=== PATIENT | female | born 1955 | race Caucasian/White ===

== ENCOUNTER 2022-12-04 13:49 | Outpatient (CLI) | payer MEDICARE, OTHER, SELFPAY ==
--- NOTE | ~2022-12-04 | CT_ITS ---
EXAMINATION: CT chest abdomen pelvis wo con DATE: 12/04/2022 14:30 INDICATION: Non-Hodgkin lymphoma. Weight loss. TECHNIQUE: Computed tomography (CT) of the chest, abdomen, and pelvis was performed without intraveno us contrast. Automated exposure control and iterative reconstruction technique were employed. The dos e-length product was 235.07 mGy-cm. COMPARISON: CT chest and abdomen 12/24/2010 FINDINGS: CHEST CT: There is mild scarring at the lung apices. There is widespread peripheral septal thickening in the neil ngs. No honeycombing. There is a tracheal diverticulum at the thoracic inlet. No pleural effusion. Th e heart size is normal. There are coronary artery calcifications. No pericardial effusion. There are no pathologically enlarged lymph nodes. There is mild thoracic spondylosis. ABDOMEN/PELVIS CT: There is moderate intrahepatic biliary duct dilatation. The common duct is dilated to 13 mm. There ar e changes of cholecystectomy. The spleen, pancreas, adrenal glands, and kidneys are normal. There is no urolithiasis. There is diverticulosis of the colon without evidence of diverticulitis. The appendi x is normal. There is no free intraperitoneal fluid. There are no pathologically enlarged lymph nodes . There is calcified atherosclerosis of the aorta and many of the other arteries. There is mild lumba r spondylosis. IMPRESSION: 1. No evidence of lymphoma. 2. Mild chronic interstitial lung disease. 3. Moderate intrahepatic and extrahepatic bile duct dilatation with mild worsening from 12/24/2010. Cor relate with liver function tests to determine if this finding is clinically significant. Reviewed, dictated and finalized at location E. IMPRESSION: 1. No evidence of lymphoma. 2. Mild chronic interstitial lung disease. 3. Moderate intrahepatic and extrahepatic bile duct dilatation with mild worsen ing from 12/24/2010. Correlate with liver function tests to determine if this fin ding is clinically significant.
== END 2022-12-04 13:50 | disposition home or self-care (01) ==
PROVIDERS: PCP Family Medicine; Visit Provider Family Medicine
DX: C85.90 Non-Hodgkin lymphoma, unspecified, unspecified site (principal); J84.9 Interstitial pulmonary disease, unspecified
CPT/HCPCS: 71250; 74176

== ENCOUNTER → 2023-12-16 15:07 | Outpatient (CLI) | payer MEDICARE, OTHER, SELFPAY ==
--- NOTE | ~2023-12-16 | XR_ITS ---
XR ankle RT min 3V DATE: 12/16/2023 15:21 INDICATION: Right ankle pain TECHNIQUE: 4 views COMPARISON: None FINDINGS: There is osteopenia. No fracture, dislocation, periosteal reaction or bone destruction is d etected. Ankle mortise is preserved. IMPRESSION: Osteopenia Reviewed, dictated and finalized at location B. IMPRESSION: Osteopenia
== END ==
PROVIDERS: PCP Nurse Practitioner Family; Visit Provider Nurse Practitioner Family
DX: M85.89 Other specified disorders of bone density and structure, multiple sites (principal)
CPT/HCPCS: 73610

== ENCOUNTER 2023-12-30 14:11 | Outpatient (CLI) | payer MEDICARE, OTHER, SELFPAY ==
--- NOTE | ~2023-12-30 | US_ITS ---
EXAMINATION:US venous doppler LE RT INDICATION:Right leg swelling TECHNIQUE: Multiple grayscale, color flow and Doppler images of the right lower extremity deep venous systems were obtained and reviewed. COMPARISON:No prior studies for comparison. FINDINGS: The common femoral, superficial femoral and popliteal veins demonstrate normal respiratory variation, augmentation and compressibility. Color flow is also seen within the posterior tibial, pe roneal, greater saphenous and profunda veins. IMPRESSION: 1: No lower extremity deep venous thrombosis. Reviewed, dictated and finalized at location B.
== END 2023-12-30 14:12 | disposition home or self-care (01) ==
PROVIDERS: PCP Family Medicine; Visit Provider Nurse Practitioner Family
DX: R60.0 Localized edema (principal)
CPT/HCPCS: 93971

== ENCOUNTER 2024-02-29 14:14 | Emergency (ER) | payer MEDICARE, OTHER, SELFPAY ==
--- NOTE | 2024-02-29 14:23 | ED.GENADULT ---
HPI - General Adult General Chief complaint: Skin/Abscess/Foreign Body Stated complaint: bee stings,allergic Time Seen by Provider: 02/29/24 14:34 Source: patient, RN notes reviewed and old records reviewed Mode of arrival: ambulatory Limitations: no limitations History of Present Illness HPI narrative: 68-year-old female presents to the [facility] concerned that she was stung by a bee due to an allergic reaction she had many years ago. States that she had hives at the time. Patient reports she was stung to her ankles about 1 hour ago, took a couple of Benadryl and came here. Mild swelling/localized reaction noted to both ankles, right lateral and left medial. mild reaction to the right ring finger. Localized reaction without systemic issue. No difficulty breathing, no lip or tongue swelling. Patient is talking in full sentences Onset (ago): hour(s) (1) Treatments prior to arrival: other (Benadryl) Related Data Home Medications Medication Instructions Recorded Confirmed aspirin 81 mg tablet,delayed 81 mg PO DAILY 06/28/19 02/29/24 release (Adult Low Dose Aspirin) cyanocobalamin (vitamin B-12) 500 500 mcg PO DAILY 06/28/19 02/29/24 mcg tablet (Vitamin B-12) multivitamin,nm-[id number] 1 tablet PO DAILY 06/28/19 02/29/24 (Complete Multivitamin tablet) melatonin 10 mg capsule 10 mg PO QHS 07/30/21 02/29/24 cholecalciferol (vitamin D3) 50 2,000 unit PO DAILY 07/15/22 02/29/24 mcg (2,000 unit) capsule Allergies Allergy/AdvReac Type Severity Reaction Status Date / Time BEE STINGS Allergy Severe HIVES Uncoded 02/29/24 14:17 SWELLING Blood Products Allergy Mild TRANSFUSION Uncoded 02/29/24 14:17 REACTION-HIVES Review of Systems Review of Systems: All systems reviewed & are unremarkable except as noted in HPI and below Constitutional: Constitutional: Reports no additional constitutional complaints Eyes: Eyes: Reports no additional eye complaints ENT: Reports system reviewed and no additional complaints, except as documented Cardiovascular: Cardiovascular: Reports no additional cardiovascular complaints, Denies chest pain and Denies dyspnea Respiratory: Respiratory: Reports no additional respiratory complaints, Denies chest congestion, Denies cough and Denies dyspnea Gastrointestinal: Gastrointestinal: Reports no additional gastrointestinal complaints, Denies abdominal pain, Denies nausea and Denies vomiting Musculoskeletal: Musculoskeletal: Reports no additional musculoskeletal complaints Integumentary/Breasts: Skin/Breast: Reports as per HPI Neurologic: Reports system reviewed and no additional complaints, except as documented Psychiatric: Psychiatric: Reports no additional psychiatric complaints Allergic/Immunologic: Allergic/Immunologic: Reports no additional allergic/immunologic complaints PMFSH Past Medical History Medical History Acute non-recurrent maxillary sinusitis At moderate risk for fall Benign head tremor BMI 20.0-20.9, adult Body mass index (BMI) of 19 or less in adult Candidiasis of genitalia in female Conjunctivitis (10/28/21) acute conjunctivitis left eye possibly bacterial Conjunctivitis, allergic, chronic COVID-19 (~04/30/23) Edema of right lower extremity Insomnia Interstitial lung disease (~12/04/22) mild chronic interstitial lung disease on CT 12/04/2022. patient vapes nicotine products for years. Overactive bladder Plant allergic contact dermatitis (~01/26/22) Right ankle pain (12/09/22) Family History Family History Father Patient's father is , Onset Age: 89 Family history of cardiovascular disease Family history of dementia Grandparent Family history of cardiovascular disease, Onset Age: 80 Cerebrovascular accident Sibling Family history of cardiovascular disease Family history of lymphoma Social History Social History (Reviewed 02/29/24 @ 14:42 by Savanah Lopez, APR
[2024-02-29 14:41] VITALS: BP 118/57; PULSE 56; RESP 16; TEMP 36.2; O2SAT 99
[2024-02-29] MEDS: FAMOTIDINE 20 MG TABLET PO (14:49)
[2024-02-29] MEDS: predniSONE 20 MG TABLET 40 MG PO (14:49)
== END 2024-02-29 15:11 | disposition home or self-care (01) ==
PROVIDERS: Emergency Provider Nurse Practitioner; PCP Family Medicine
DX: T63.441A Toxic effect of venom of bees, accidental (unintentional), initial encounter (principal); J84.9 Interstitial pulmonary disease, unspecified; Z86.16 Personal history of COVID-19
CPT/HCPCS: 99213; A9270; G0463; J7512

== ENCOUNTER → 2024-10-05 14:30 | Outpatient (CLI) | payer MEDICARE, OTHER, SELFPAY ==
--- NOTE | ~2024-10-05 | XR_ITS ---
XR shoulder RT min 2V Ordering provider: Dave Ellis MD History: . M25.511 - Pain in right shoulder . Comparison: None. FINDINGS: BONES: No acute fracture or dislocation. JOINT SPACES: The acromioclavicular joint is normal. The glenohumeral joint is normal. SOFT TISSUES: Normal. IMPRESSION: No acute osseous abnormality right shoulder. Reviewed, dictated and finalized at location A.
--- OUTSIDE RECORDS SUMMARY | 2024-10-05 16:23 | XMS_ITS | Continuity of Care Document ---
Author Organization [facility] Address [address] [place] [address] Phone Care Team Providers Care Industrial Cleaner Name Role Phone Nam OD, Kwaku Unavailable Unavailable Advance Directives Directive Yes / No Effective Date File Name No Information Encounters Encounter Description Practice Location Reason(s) For Visit Diagnoses Date Provider Providers Copied on Encounter [facility], [address], [place], [place], [id number], [place] tel:[phone] [facility] No Information [phone] Nam OD Kwaku. [address] , [address], [place], [address], [place]. tel:[phone] Family History Family Member Type Diagnosis Age At Onset No Information Payers Payer name Insurance type Covered republican ID Authoriza tion(s) No Information Social History Type Description Quantity Date Captured Comments Sex Female Smoking Status No Information Chief Complaint And Reason For Visit No Information Reason For Referral Reason For Referral No Information History Of Present Illness Encounter Date Complaint History Of Prese nt Illness No Information Functional Status Date Functional Assessmen t No Information Instructions Date Instruction Additional Infor mation No Information Assessments Type Assessment Date No Information Patient Care Teams Name Effective Dates (start - stop) Status Members No Information
== END ==
LOC: EXPTRAD 14:32
PROVIDERS: PCP Family Medicine; Visit Provider Family Medicine
DX: M25.511 Pain in right shoulder (principal)
CPT/HCPCS: 73030